=== PATIENT | female | born 1990 | race Caucasian/White ===

== ENCOUNTER 2018-01-09 01:45 | Emergency (ER) | payer SELFPAY ==
[~2018-01-09] VITALS: Ht 160 cm; Wt 56.7 kg
--- NOTE | 2018-01-09 03:20 | Diagnostic Imaging Report ---
EXAM: CHEST 2 VIEWS, PA and lateral INDICATION: Chest pain COMPARISON: PA and lateral view of the chest November 30, 2015 FINDINGS: LINES/TUBES: None LUNGS: No consolidations or edema. PLEURA: No effusions or pneumothorax. HEART AND MEDIASTINUM: Normal size and contour. BONES AND SOFT TISSUES: No acute findings. IMPRESSION: No acute thoracic abnormality. Signed by: Dr. Anya Carroll M.D. on 01/09/2018 3:17 AM
== END 2018-01-09 03:59 | disposition home or self-care (01) ==
LOC: ER 01:45
DX: R07.89 Other chest pain (principal); R05 Cough; L03.114 Cellulitis of left upper limb
CPT/HCPCS: 71046; 93005; 99283